=== PATIENT | male | born 1970 | race Hispanic/Latino ===

== ENCOUNTER 2025-10-14 06:39 | Day surgery (SDC) | payer OTHER, SELFPAY ==
[2025-10-01 13:38] VITALS: BMI 36.5
--- NOTE | 2025-10-05 14:14 | PTCARENOTE ---
Abn ECG, Dr. Shukla notified, no additional interventions required.
--- NOTE | 2025-10-05 14:15 | PTCARENOTE ---
Abn ECG, Dr. Shukla notified, no additional interventions required.
[2025-10-14] VITALS (8 sets, daily range): BP systolic 14–144; BP diastolic 51–92; BMI 36.5
[2025-10-14] MEDS: NORMOSOL-R/PLASMALYTE-A 1000 IV (15:30)
[2025-10-14] MEDS: ZOFRAN 4 MG IV (19:16)
[2025-10-14] MEDS: SUBLIMAZE 50 MCG IV ×2 (19:16→19:33)
== END 2025-10-14 21:25 | disposition home or self-care (01) ==
LOC: SDS 06:39
PROVIDERS: ATTENDING PHYSICIAN Surgery; FAMILY PHYSICIAN Nurse Practitioner Family
DX: K64.1 Second degree hemorrhoids (principal); K62.89 Other specified diseases of anus and rectum
CPT/HCPCS: 46948; 36415; 93005